=== PATIENT | male | born 1970 | race Caucasian/White ===

== ENCOUNTER 2020-10-25 13:43 | Inpatient (IN) | payer OTHER ==
[~2020-10-25] VITALS: Ht 177.8 cm; Wt 90.5 kg
[2020-10-25] MEDS ORDERED: SODIUM CHLORIDE 0.9% 1,000 ML IVB ONE (14:30)
[2020-10-25 14:59] LABS: Basophils % (auto) 0.3 % (0.0-2.0); Eosinophils # (auto) 0 10 ^3/uL (0-0.8); Lymphocytes # (auto) 0.3 10 ^3/uL (0.4-5.4); Monocytes # (auto) 1.1 10 ^3/uL (0-1.3); Red Blood Cells 4.39 10^6/uL (4.5-5.90)
[2020-10-25 15:01] LABS: Basophils # (auto) 0 10 ^3/uL (0-0.2); Hematocrit 42.3 % (41.0-53.0); Hemoglobin 12.4 g/dL (13.5-17.5); Lymphocytes % (auto) 1.9 % (10.0-50.0); Mean Corpuscular Hemoglobin 28.3 pg (28.0-32.0); Mean Corpuscular Hgb Conc. 29.4 g/dL (32.0-36.0); Mean Corpuscular Volume 96.3 fL (80.0-100.0); Monocytes % (auto) 7.6 % (0.0-12.0); Neutrophils # (auto) 13.3 10 ^3/uL (1.6-8.6); Neutrophils % (auto) 90.2 % (37.0-80.0); Platelet Count (auto) 263 10^3/uL (140-450); Red Cell Distribution Width 15.1 % (11.8-14.3); White Blood Cell 14.8 10^3/uL (4.4-10.8)
[2020-10-25 15:11] LABS: Albumin 3.7 g/dL (3.4-5.0); Anion Gap 27 (5-15); Blood Alcohol < 3.0 mg/dL (0-5); Calcium 7.1 mg/dL (8.5-10.1); Carbon Dioxide 13 mmol/L (21-32); Chloride 103 mmol/L (98-107); Potassium 4.8 mmol/L (3.5-5.1); Sodium 143 mmol/L (136-145)
[2020-10-25 15:20] LABS: Alanine Aminotransferase 72 U/L (16-61); Alkaline Phosphatase 78 U/L (45-117); Aspartate Aminotransferase 60 U/L (15-37); BUN/Creatinine Ratio 18.7; Bilirubin, Total 0.6 mg/dL (0.2-1.0); GFR African American 10 mL/min; GFR Non-African American 8 mL/min; Total Protein 7.6 g/dL (6.4-8.2)
[2020-10-25 15:25] LABS: Blood Urea Nitrogen 143 mg/dL (7-18); Glucose 1238 mg/dL (74-106); Magnesium 4.6 mg/dL (1.6-2.6)
[2020-10-25] MEDS ORDERED: DEXTROSE (50%) 50ML SYRG IV PRN ×2 (15:30→16:30)
[2020-10-25] MEDS ORDERED: InsuLIN R (HUMAN) 100 UNITS in SODIUM CHL 0.9% 99 ML IV SCH ×4 (15:30→22:45)
[2020-10-25 15:40] LABS: Urine Bacteria NONE SEEN /hpf (None Seen); Urine Blood 1+ /uL (Negative); Urine Specific Gravity 1.026 (1.001-1.035); Urine WBC 3 /hpf (0 - 3)
[2020-10-25 15:56] LABS: Alcohol, Urine < 3.0 mg/dL (0-10); Amphetamine Screen, Urine POSITIVE (NEGATIVE); Barbiturate Scree,Urine NEGATIVE (NEGATIVE); Benzodiazephine Screen, Urine NEGATIVE (NEGATIVE); Cannabinoid Screen, Urine NEGATIVE (NEGATIVE); Cocaine Screen, Urine NEGATIVE (NEGATIVE); Phencyclidine Screen, Urine NEGATIVE (NEGATIVE)
[2020-10-25] MEDS ORDERED: SODIUM BICARBONATE 8.4 % INJ 50ML VIAL IV ONE ×2 (16:00)
[2020-10-25] MEDS ORDERED: SODIUM CHLORIDE 0.9% 1,000 ML IV ONE ×2 (16:00)
[2020-10-25 16:03] LABS: Opiate Scree,Urine NEGATIVE (NEGATIVE)
[2020-10-25] MEDS: SODIUM CHLORIDE 0.9% 1,000 ML IV SCH ×2 (16:24→17:30)
[2020-10-25] MEDS ORDERED: INSULIN LANTUS (GLARGINE) 1 /0.01ml (100units/ml) SC ONE (16:30)
[2020-10-25] MEDS ORDERED: ACCU-CHEK COMFORT CURVE STRIP VI SCH (16:30)
[2020-10-25] MEDS ORDERED: MORPHINE SULF INJ 2 MG/ML SYRINGE 1ML IV PRN ×2 (16:30)
[2020-10-25] MEDS ORDERED: hydrALAZINE HCL 20 MG/ML VL IV PRN (16:30)
[2020-10-25] MEDS ORDERED: LORazepam 2MG/ML-1ML VIAL IV PRN (16:30)
[2020-10-25] MEDS ORDERED: ONDANSETRON HCL 4 MG/2 ML VIAL IV PRN (16:30)
[2020-10-25] MEDS ORDERED: TETANUS-DIPTH-ACEL PERTUSSIS 0.5ML SYR Tdap IM ONE (16:30)
[2020-10-25] MEDS ORDERED: NITROGLYCERIN 0.4 MG SL TAB SL PRN (16:30)
[2020-10-25] MEDS ORDERED: LACTATED RINGER'S 2,000 ML IV ONE (17:00)
[2020-10-25] MEDS ORDERED: SOD CHL 0.9%/ KCL 20MEQ 1,000 ML IV SCH (17:00)
[2020-10-25 17:12] LABS: INR 1.18 (0.9-1.15); Partial Thromboplastin Time 24.5 sec (23.0-31.2)
[2020-10-25] MEDS: ENOXAPARIN SOD 30 MG/0.3 ML SYRINGE SC SCH (17:17)
[2020-10-25] MEDS: ACCU-CHEK COMFORT CURVE STRIP VI SCH ×5 (17:25→23:38)
[2020-10-25] MEDS: InsuLIN R (HUMAN) 100 UNITS in SODIUM CHL 0.9% 99 ML IV SCH ×3 (17:26→22:26)
[2020-10-25] MEDS: cefTRIAXone 1GM/50ML D5W 50 ML IV SCH (17:47)
[2020-10-25] MEDS ORDERED: SODIUM CHLORIDE 0.9% 1,000 ML IV SCH ×2 (19:30→21:30)
[2020-10-25] MEDS ORDERED: InsuLIN REG 1unit/0.01ml Soln (100units/ml) ONE (21:17)
[2020-10-25 21:50] VITALS: BP 102/67
[2020-10-25 22:01] VITALS: BP 138/44
[2020-10-25 22:16] VITALS: BP 136/52
[2020-10-25 22:29] LABS: Calcium 6.8 mg/dL (8.5-10.1); Potassium 3.1 mmol/L (3.5-5.1)
[2020-10-25 22:38] LABS: BUN/Creatinine Ratio 21.7
[2020-10-25 23:01] VITALS: BP 129/54
[2020-10-25 23:10] VITALS: BP 102/63
[2020-10-25] MEDS ORDERED: SOD CHL 0.45% 1,000 ML IV SCH (23:15)
[2020-10-25] MEDS ORDERED: POTASSIUM CHLORIDE 60 MEQ, LIDOCAINE 1% (LOCAL ANESTH.) 6 ML in SODIUM CHL 0.9% 500 ML IV ONE (23:15)
[2020-10-26] VITALS (17 sets, daily range): BP systolic 117–166; BP diastolic 45–137
[2020-10-26] MEDS ORDERED: POTASSIUM CHL 20MEQ/100ML 200 ML IV ONE (00:35)
[2020-10-26] MEDS: POTASSIUM CHLORIDE 40 MEQ in SOD CHL 0.45% 1,000 ML IV SCH ×2 (00:47→08:10)
[2020-10-26] MEDS: ACCU-CHEK COMFORT CURVE STRIP VI SCH ×7 (00:59→20:44)
[2020-10-26] MEDS ORDERED: InsuLIN R (HUMAN) 100 UNITS in SODIUM CHL 0.9% 99 ML IV SCH (02:45)
[2020-10-26 03:00] LABS: Potassium 3.4 mmol/L (3.5-5.1)
[2020-10-26 03:04] LABS: BUN/Creatinine Ratio 26.7; Calcium 7.2 mg/dL (8.5-10.1)
[2020-10-26] MEDS ORDERED: DEXTROSE (50%) 50ML SYRG IV PRN (03:30)
[2020-10-26] MEDS: InsuLIN REG 1unit/0.01ml Soln (100units/ml) SC SCH ×5 (04:00→21:07)
[2020-10-26 06:15] LABS: Basophils # (auto) 0 10 ^3/uL (0-0.2); Basophils % (auto) 0.2 % (0.0-2.0); Eosinophils # (auto) 0 10 ^3/uL (0-0.8); Hematocrit 36.7 % (41.0-53.0); Hemoglobin 12.1 g/dL (13.5-17.5); Lymphocytes # (auto) 0.6 10 ^3/uL (0.4-5.4); Mean Corpuscular Hemoglobin 28.5 pg (28.0-32.0); Mean Corpuscular Volume 86.2 fL (80.0-100.0); Monocytes # (auto) 1.1 10 ^3/uL (0-1.3); Monocytes % (auto) 7.2 % (0.0-12.0); Neutrophils # (auto) 13.8 10 ^3/uL (1.6-8.6); Neutrophils % (auto) 88.6 % (37.0-80.0); Nucleated Red Blood Cells % 0.2 %; Platelet Count (auto) 225 10^3/uL (140-450); Red Blood Cells 4.26 10^6/uL (4.5-5.90); Red Cell Distribution Width 13.6 % (11.8-14.3); White Blood Cell 15.6 10^3/uL (4.4-10.8)
[2020-10-26 06:40] LABS: INR 1.17 (0.9-1.15)
[2020-10-26 06:41] LABS: Magnesium 3.4 mg/dL (1.6-2.6); Potassium 4.3 mmol/L (3.5-5.1)
[2020-10-26 07:12] LABS: Albumin 3.2 g/dL (3.4-5.0); Bilirubin, Total 0.5 mg/dL (0.2-1.0); Calcium 6.9 mg/dL (8.5-10.1); Phosphorus 6.9 mg/dL (2.5-4.90); Total Protein 6.6 g/dL (6.4-8.2)
[2020-10-26] MEDS ORDERED: SOD CHL 0.45% 1,000 ML IV SCH (08:15)
[2020-10-26] MEDS: cefTRIAXone 1GM/50ML D5W 50 ML IV SCH (09:31)
[2020-10-26] MEDS ORDERED: PANTOPRAZOLE 40 MG/10 ML VIAL INJ IV SCH (10:00)
[2020-10-26] MEDS ORDERED: THIAMINE 100mg/ml INJ (200mg/2ml VIAL) IV SCH (10:00)
[2020-10-26] MEDS ORDERED: INSULIN LANTUS (GLARGINE) 1 /0.01ml (100units/ml) SC SCH (10:00)
[2020-10-26 10:11] LABS: Potassium 4.6 mmol/L (3.5-5.1)
[2020-10-26] MEDS ORDERED: D5W 5% 1,000 ML IV SCH (12:15)
[2020-10-26] MEDS ORDERED: SODIUM BICARBONATE 8.4 % INJ 50ML VIAL IV ONE (12:15)
[2020-10-26] MEDS: FREE WATER GT SCH ×4 (12:24→21:05)
[2020-10-26] MEDS ORDERED: FREE WATER GT SCH (14:00)
[2020-10-26 14:17] LABS: Albumin 2.9 g/dL (3.4-5.0); Calcium 7.2 mg/dL (8.5-10.1); Potassium 5.3 mmol/L (3.5-5.1)
[2020-10-26 14:22] LABS: BUN/Creatinine Ratio 32.8; Bilirubin, Total 0.5 mg/dL (0.2-1.0); Total Protein 6.3 g/dL (6.4-8.2)
[2020-10-26] MEDS: ENOXAPARIN SOD 30 MG/0.3 ML SYRINGE SC SCH (17:20)
[2020-10-26] MEDS: D5W 5% 1,000 ML IV SCH ×2 (19:00→21:05)
[2020-10-26 20:27] LABS: BUN/Creatinine Ratio 35.1; Calcium 6.9 mg/dL (8.5-10.1); Potassium 4.2 mmol/L (3.5-5.1)
[2020-10-26] MEDS: MUPIROCIN 2% OINT 15gm or 22gm EACHNOSTRI SCH (21:05)
[2020-10-26] MEDS: INSULIN LANTUS (GLARGINE) 1 /0.01ml (100units/ml) SC SCH (21:06)
[2020-10-27] VITALS (10 sets, daily range): BP systolic 116–154; BP diastolic 64–84
[2020-10-27] MEDS: ACCU-CHEK COMFORT CURVE STRIP VI SCH ×6 (00:07→23:47)
[2020-10-27] MEDS: FREE WATER GT SCH ×6 (02:30→22:33)
[2020-10-27] MEDS: InsuLIN REG 1unit/0.01ml Soln (100units/ml) SC SCH ×5 (04:00→18:17)
[2020-10-27 07:29] LABS: Basophils # (auto) 0 10 ^3/uL (0-0.2); Basophils % (auto) 0.1 % (0.0-2.0); Eosinophils # (auto) 0 10 ^3/uL (0-0.8); Hematocrit 33.9 % (41.0-53.0); Hemoglobin 11.5 g/dL (13.5-17.5); Lymphocytes # (auto) 0.9 10 ^3/uL (0.4-5.4); Lymphocytes % (auto) 10.4 % (10.0-50.0); Mean Corpuscular Hemoglobin 28.7 pg (28.0-32.0); Mean Corpuscular Hgb Conc. 33.9 g/dL (32.0-36.0); Mean Corpuscular Volume 84.8 fL (80.0-100.0); Monocytes # (auto) 0.6 10 ^3/uL (0-1.3); Monocytes % (auto) 6.5 % (0.0-12.0); Neutrophils # (auto) 7.2 10 ^3/uL (1.6-8.6); Platelet Count (auto) 171 10^3/uL (140-450); Red Cell Distribution Width 13.9 % (11.8-14.3); White Blood Cell 8.7 10^3/uL (4.4-10.8)
[2020-10-27 07:37] LABS: Albumin 2.6 g/dL (3.4-5.0); Calcium 7.2 mg/dL (8.5-10.1); Potassium 3.8 mmol/L (3.5-5.1)
[2020-10-27 07:41] LABS: Bilirubin, Total 0.5 mg/dL (0.2-1.0); Total Protein 5.9 g/dL (6.4-8.2)
[2020-10-27] MEDS: MUPIROCIN 2% OINT 15gm or 22gm EACHNOSTRI SCH ×2 (10:07→22:00)
[2020-10-27] MEDS: cefTRIAXone 1GM/50ML D5W 50 ML IV SCH (10:07)
[2020-10-27] MEDS: INSULIN LANTUS (GLARGINE) 1 /0.01ml (100units/ml) SC SCH (10:18)
[2020-10-27] MEDS ORDERED: D5W 5% 1,000 ML IV SCH (11:00)
[2020-10-27] MEDS ORDERED: DEXTROSE (50%) 50ML SYRG IV PRN (11:15)
[2020-10-27] MEDS: D5W 5% 1,000 ML IV SCH (12:03)
[2020-10-27] MEDS: ENOXAPARIN SOD 30 MG/0.3 ML SYRINGE SC SCH (18:03)
[2020-10-27] MEDS ORDERED: INSULIN LANTUS (GLARGINE) 1 /0.01ml (100units/ml) SC SCH (22:00)
[2020-10-28] MEDS: InsuLIN REG 1unit/0.01ml Soln (100units/ml) SC SCH (00:02)
[2020-10-28] MEDS: FREE WATER GT SCH (01:46)
[2020-10-28] MEDS: D5W 5% 1,000 ML IV SCH (02:32)
[2020-10-28] MEDS ORDERED: MULTIPLE VITAMINS W/ MINERALS TAB PO SCH (10:00)
[2020-10-28] MEDS ORDERED: PANTOPRAZOLE 40 MG TAB PO SCH (10:00)
== END 2020-10-28 02:30 | disposition short-term general hospital (02) | DRG 637 ==
LOC: EDBD 13:43 → ER 13:47 → TELE 16:24 → EDBD 16:24 → DOU IN ICU 21:50 → WEST WING 10-27 14:28 → TELE-WESTW 10-27 14:32
PROVIDERS: ADMIT Family Medicine; ATTEND Internal Medicine
DX: E11.10 Type 2 diabetes mellitus with ketoacidosis without coma (principal); G93.41 Metabolic encephalopathy; N17.0 Acute kidney failure with tubular necrosis; J69.0 Pneumonitis due to inhalation of food and vomit; E87.0 Hyperosmolality and hypernatremia; M62.82 Rhabdomyolysis; E86.0 Dehydration; E83.41 Hypermagnesemia; F15.90 Other stimulant use, unspecified, uncomplicated; F19.10 Other psychoactive substance abuse, uncomplicated; Z22.322 Carrier or suspected carrier of Methicillin resistant Staphylococcus aureus
CPT/HCPCS: 36415; 36600; 70450; 70486; 71045; 80048; 80053; 80307; 80320; 81001; 82550; 82805; 82962; 83036; 83605; 83735; 83880; 84100; 84443; 84484; 85025; 85610; 85730; 87040; 87081; 87426; 90471; 90715; 93005; 96365; 96372; 96375; 97163; 99291; C9113; G0378; J0696; J1815; J2001; J2405; J3480